=== PATIENT | female | born 1975 | race Asian ===

== ENCOUNTER 2016-07-14 11:11 | Emergency (ER) | payer OTHER ==
[~2016-07-14] VITALS: Ht 175.3 cm; Wt 122.5 kg
[2016-07-14 11:27] VITALS: BP 152/80; TEMP 99.3
== END 2016-07-14 18:51 | disposition home or self-care (01) ==
LOC: ED 11:11
DX: R51 Headache (principal)
CPT/HCPCS: 99282

== ENCOUNTER 2016-08-28 14:06 | Emergency (ER) | payer OTHER ==
[~2016-08-28] VITALS: Ht 175.3 cm; Wt 120.2 kg
[2016-08-28 16:45] VITALS: BP 139/84; TEMP 98.4
== END 2016-08-28 16:45 | disposition home or self-care (01) ==
LOC: ED 14:06
DX: M54.5 Low back pain (principal)
CPT/HCPCS: 81000; 99282

== ENCOUNTER 2017-05-08 03:23 | Emergency (ER) | payer OTHER ==
[~2017-05-08] VITALS: Ht 172.7 cm; Wt 120.2 kg
[2017-05-08 03:34] VITALS: TEMP 98.2
[2017-05-08 04:43] VITALS: BP 145/78
== END 2017-05-08 04:45 | disposition home or self-care (01) ==
LOC: ED 03:23
DX: R42 Dizziness and giddiness (principal)
CPT/HCPCS: 99282

== ENCOUNTER 2017-09-02 23:54 | Emergency (ER) | payer BC ==
[~2017-09-02] VITALS: Ht 172.7 cm; Wt 120.2 kg
[2017-09-03 01:08] LABS: PLATELET COUNT 414 K/uL (152-353)
[2017-09-03 01:12] LABS: POTASSIUM 3.7 mmol/L (3.6-5.2)
[2017-09-03 02:15] VITALS: BP 134/62; TEMP 98.1
== END 2017-09-03 02:22 | disposition home or self-care (01) ==
LOC: ED 23:54
DX: G43.909 Migraine, unspecified, not intractable, without status migrainosus (principal)
CPT/HCPCS: 80053; 81000; 85027; 96360; 96375; 99284; J1100; J1200; J1885; J2405

== ENCOUNTER 2018-06-24 19:29 | Emergency (ER) | payer BC ==
[~2018-06-24] VITALS: Ht 172.7 cm; Wt 117.9 kg
[2018-06-24 21:52] LABS: PLATELET COUNT 379 K/uL (152-353)
[2018-06-24 22:01] LABS: POTASSIUM 3.8 mmol/L (3.6-5.2)
[2018-06-25 00:07] VITALS: BP 138/82; TEMP 98.3
== END 2018-06-25 00:08 | disposition home or self-care (01) ==
LOC: ED 19:29
PROVIDERS: Internal Medicine
DX: R51 Headache (principal); R00.2 Palpitations; I49.1 Atrial premature depolarization; J40 Bronchitis, not specified as acute or chronic; D72.829 Elevated white blood cell count, unspecified
CPT/HCPCS: 36415; 80053; 85027; 93005; 99283

== ENCOUNTER 2018-06-24 22:07 | Outpatient (CLI) | payer BC | END 2018-06-24 22:26 | disposition short-term general hospital (02) | LOC: AMB 22:07 | DX: R51 Headache (principal); R00.2 Palpitations; I49.1 Atrial premature depolarization; J40 Bronchitis, not specified as acute or chronic; D72.829 Elevated white blood cell count, unspecified | CPT/HCPCS: A0425; A0426 ==

== ENCOUNTER 2018-09-22 22:36 | Emergency (ER) | payer BC ==
[~2018-09-22] VITALS: Ht 172.7 cm; Wt 117.9 kg
[2018-09-22 23:57] LABS: PLATELET COUNT 382 K/uL (152-353)
[2018-09-23 00:06] LABS: POTASSIUM 3.5 mmol/L (3.6-5.2)
[2018-09-23 00:28] VITALS: BP 160/84; TEMP 98.7
== END 2018-09-23 00:30 | disposition home or self-care (01) ==
LOC: ED 22:36
PROVIDERS: Emergency Medicine
DX: R51 Headache (principal)
CPT/HCPCS: 80053; 81025; 85027; 93005; 96372; 99283; J2175

== ENCOUNTER 2019-02-23 22:52 | Emergency (ER) | payer BC ==
[~2019-02-23] VITALS: Ht 172.7 cm; Wt 114.3 kg
[2019-02-23] MEDS ORDERED: LISI5TAB10 PO (23:55)
[2019-02-24 00:02] LABS: PLATELET COUNT 342 K/uL (152-353)
[2019-02-24 00:06] LABS: POTASSIUM 3.8 mmol/L (3.6-5.2)
[2019-02-24 00:30] VITALS: BP 124/66; TEMP 99
== END 2019-02-24 00:30 | disposition home or self-care (01) ==
LOC: ED 22:52
PROVIDERS: Emergency Medicine
DX: N39.0 Urinary tract infection, site not specified (principal); N30.90 Cystitis, unspecified without hematuria
CPT/HCPCS: 36415; 80053; 81000; 85027; 87077; 87086; 87088; 87186; 96372; 99283

== ENCOUNTER 2019-06-02 14:48 | Outpatient (CLI) | payer BC ==
[~2019-06-02 14:48] MED LIST: LISI5TAB10 PO
== END 2019-06-02 22:43 | disposition home or self-care (01) ==
LOC: RAD 14:48
DX: M25.562 Pain in left knee (principal)

== ENCOUNTER 2020-08-16 08:16 | Outpatient (CLI) | payer BC, OTHER | END 2020-08-16 20:54 | disposition home or self-care (01) | LOC: INF 08:16 | PROVIDERS: ATTEND Internal Medicine | DX: Z23 Encounter for immunization (principal) ==

== ENCOUNTER 2020-09-06 08:12 | Outpatient (CLI) | payer BC, OTHER | END 2020-09-06 20:23 | disposition home or self-care (01) | LOC: INF 08:12 | PROVIDERS: ATTEND Internal Medicine | DX: Z23 Encounter for immunization (principal) ==

== ENCOUNTER 2020-10-09 08:48 | Emergency (ER) | payer OTHER ==
[~2020-10-09] VITALS: Ht 170.2 cm; Wt 132.1 kg
[2020-10-09 08:54] VITALS: TEMP 97.1
[2020-10-09 09:32] LABS: PLATELET COUNT 341 K/uL (152-353)
[2020-10-09 09:38] LABS: SODIUM 140 mmol/L (136-145)
[2020-10-09 09:42] LABS: PARTIAL THROMBOPLASTIN TIME 25.9 SECONDS (24.5-33.6)
[2020-10-09 10:09] VITALS: BP 145/72
== END 2020-10-09 10:09 | disposition home or self-care (01) ==
LOC: ED 08:48
PROVIDERS: Hospitalist
DX: I10 Essential (primary) hypertension (principal); M62.838 Other muscle spasm
CPT/HCPCS: 80053; 82550; 82553; 83880; 84484; 85027; 85610; 85730; 93005; 99283

== ENCOUNTER 2021-05-08 14:03 | Observation (INO) | payer OTHER ==
[~2021-05-08] VITALS: Ht 167.6 cm; Wt 131.6 kg
[~2021-05-08 14:03] MED LIST changes: +LISI10TA11 PO; -LISI5TAB10 PO
[2021-05-08 15:28] VITALS: BP 141/58; TEMP 98.4; Ht 167.6 cm; Wt 131.6 kg
[2021-05-08 16:19] LABS: PARTIAL THROMBOPLASTIN TIME 27.4 SECONDS (24.5-33.6)
[2021-05-08 17:00] LABS: PLATELET COUNT 332 K/uL (152-353)
[2021-05-08 17:03] LABS: POTASSIUM 3.9 mmol/L (3.6-5.2)
[2021-05-08 20:00] VITALS: BP 117/64; TEMP 98.6
[2021-05-09] VITALS: BP 125/70; TEMP 98.6
[2021-05-09 04:00] VITALS: BP 120/41; TEMP 98.4
[2021-05-09 08:00] VITALS: BP 111/49; TEMP 98.3
[2021-05-09 12:00] VITALS: BP 113/57; TEMP 98.5
[2021-05-09 16:00] VITALS: BP 98/42; TEMP 98.9
== END 2021-05-09 18:25 | disposition home or self-care (01) ==
LOC: MED/SURG 14:03
PROVIDERS: ADMIT Family Medicine; ATTEND Family Medicine
DX: R07.89 Other chest pain (principal); U07.1 COVID-19; M54.6 Pain in thoracic spine
CPT/HCPCS: 80053; 82150; 82550; 82728; 83690; 84484; 85027; 85379; 85610; 85730; 86140; 87635; 93005; 99220; G0378; G0379; J1650; U0003

== ENCOUNTER 2021-10-21 12:33 | Outpatient (CLI) | payer OTHER ==
[2021-10-21 13:26] LABS: SODIUM 137 mmol/L (136-145)
== END 2021-10-21 18:49 | disposition home or self-care (01) ==
LOC: LABW 12:33
PROVIDERS: ATTEND Nurse Practitioner Primary Care
DX: R07.89 Other chest pain (principal)
CPT/HCPCS: 36415; 80053; 82550; 82553; 84484; 85379; 93005

== ENCOUNTER 2022-09-08 06:43 | Emergency (ER) | payer OTHER ==
[~2022-09-08] VITALS: Ht 170.2 cm; Wt 136.1 kg
[2022-09-08 06:50] VITALS: BP 126/47; TEMP 97.2
[2022-09-08 07:19] LABS: PLATELET COUNT 377 K/uL (152-353)
== END 2022-09-08 08:35 | disposition home or self-care (01) ==
LOC: ED 06:43
PROVIDERS: Family Medicine
DX: A08.4 Viral intestinal infection, unspecified (principal); E86.0 Dehydration
CPT/HCPCS: 36415; 80053; 81002; 82150; 83690; 85027; 96361; 96374; 99284; J2405